=== PATIENT | male | born 1980 | race Caucasian/White ===

== ENCOUNTER 2016-12-31 20:30 | Emergency (ER) | payer OTHER ==
[2016-12-31 20:35] VITALS: BP 157/97
[2016-12-31 21:15] LABS: CHLORIDE,CL 106 mmol/L (101-111); SODIUM,NA 141 mmol/L (135-145)
--- NOTE | 2016-12-31 21:17 | EDM.PDOC ---
ED HPI GENERAL MEDICAL PROBLEM - General Chief Complaint: Cardiovascular Problem Stated Complaint: KAZ ARMENDARIZ, [id number] Time Seen by Provider: 12/31/16 21:00 Source of Information: Reports: Patient History Limitations: Reports: No Limitations - History of Present Illness INITIAL COMMENTS - FREE TEXT/NARRATIVE: 36 yo M with PMH of Paroxysmal A-fib (recently diagnosed about 1 year ago) is here for evaluation of his A-fib. He reports when he gets into A-fib intermittently, he spontaneously converts into sinus rhythm over 7-14 hours without intervention. But, he has required admission and cardizem in the past for his rate control. Today, patient reports he started to feel his heart was racing starting around 1 pm this afternoon; he has been monitoring his pulse and BP since then (pulse has been 70-115 bpm, SBP has been 130s-150s). Since heart racing/palpitations, he has also been feeling fatigued. He reports having a recent anxiety/panic attack in [place]. He reports his recent lab work in clinic in [place] last week was unremarkable. He denies chest pain, SOB, acute cough, LE edema, recent illness. He feels well overall but is here at the request of his since he has remained in A-fib for about 7-8 hrs now. 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 He reports having a follow up with Cardiology next week. He has never had to get cardioverted for his A-fib. He reports compliance with his medications, including metoprolol and high dose aspirin. He took his metoprolol around 9:30 am today. Onset: Today Onset Date: 12/31/16 - Related Data Allergies Allergy/AdvReac Type Severity Reaction Status Date / Time No Known Allergies Allergy Verified 12/31/16 20:39 Home Meds: Home Meds Aspirin 325 mg PO WITHBREAKFAST #30 tablet 02/07/16 [Rx] Metoprolol Succinate [Toprol XL 50mg] 50 mg PO DAILY 04/20/16 [History] LORazepam [LORazepam] 0.5 mg PO QPM PRN 12/31/16 [History] Venlafaxine HCl [Venlafaxine ER] 37.5 mg PO DAILY 12/31/16 [History] Past Medical History HEENT History: Reports: Impaired Vision Cardiovascular History: Reports: Afib Respiratory History: Reports: None Gastrointestinal History: Reports: None Genitourinary History: Reports: None Musculoskeletal History: Reports: None Neurological History: Reports: None Psychiatric History: Reports: Anxiety Endocrine/Metabolic History: Reports: None Hematologic History: Reports: None Immunologic History: Reports: None Oncologic (Cancer) History: Reports: None Dermatologic History: Reports: None - Infectious Disease History Infectious Disease History: Reports: C-Difficile - Past Surgical History Neurological Surgical History: Reports: Laminectomy Musculoskeletal Surgical History: Reports: Other (See Below) Other Musculoskeletal Surgeries/Procedures:: back surgery Social & Family History - Family History Cardiac: Reports: High Cholesterol Musculoskeletal: Reports: None Neurological: Reports: None Psychiatric: Reports: None - Tobacco Use Smoking Status *Q: Former Smoker Years of Tobacco use: 10 Packs/Tins Daily: 0.2 Used Tobacco, but Quit: Yes Month Tobacco Last Used: 2016 Second Hand Smoke Exposure: No - Caffeine Use Caffeine Use: Reports: Soda - Recreational Drug Use Recreational Drug Use: No - Living Situation & Occupation Living situation: Reports: with Family ED ROS GENERAL - Review of Systems Review Of Systems: See Below Constitutional: Reports: Fatigue HEENT: Reports: No Symptoms Respiratory: Reports: No Symptoms Cardiovascular: Reports: Palpitations Endocrine: Reports: No Symptoms GI/Abdominal: Reports: No Symptoms : Reports: No Symptoms Musculoskeletal: Reports: No Symptoms Skin: Reports: No Symptoms Neurological: Reports: No Symptoms Psychiatric: Reports: Anxiety ED EXAM, GENERAL - Physical Exam Exam: See Below Exam Limited By: No Limitations General Appearance: Alert, No Apparent Distress, Anxious Ears: Hearing Grossly Normal Neck: Supple Respiratory/Chest: No Respiratory Distress, Lungs Clear, Normal Breath Sounds, No Accessory Muscle Use Cardiovascular: Normal Peripheral Pulses, No Edema, No Murmur, Tachycardia, Irregularly Irregular GI/Abdominal: Soft, Non-Tender, No Distention Extremities: Normal Inspection, Non-Tender, No Pedal Edema Neurological: Alert, Oriented, Normal Cognition Psychiatric: Anxious Skin Exam: Warm, Dry, Intact EKG INTERPRETATION Rhythm: A-Fib (HR 124. No acute ST or T wave changes.) Course - Vital Signs Last Recorded V/S: Last Vital Signs Temp 97.6 F 12/31/16 20:33 Pulse 73 12/31/16 20:33 Resp 18 12/31/16 20:33 BP 157/97 H 12/31/16 20:33 Pulse Ox 99 12/31/16 20:33 - Orders/Labs/Meds Orders: Active Orders 24 hr Category Date Time Status EKG Documentation Completion [RC] URGENT Care 12/31/16 20:46 Active Labs: Laboratory Tests 12/31/16 12/31/16 12/31/16 Range/Units 20:50 20:50 20:50 WBC 9.1 (5.0-10.0) 10^3/uL RBC 5.43 (4.6-6.2) 10^6/uL Hgb 16.3 (14.0-18.0) g/dL Hct 47.2 (40.0-54.0) % MCV 86.9 (80-100) fL MCH 30.0 (27.0-34.0) pg MCHC 34.5 (33.0-35.0) g/dL Plt Count 202 (150-450) 10^3/uL Neut % (Auto) 59.2 (42.2-75.2) % Lymph % (Auto) 28.4 (20.5-50.1) % [place] % (Auto) 10.4 H (2-8) % Eos % (Auto) 1.7 (1.0-3.0) % Baso % (Auto) 0.3 (0.0-1.0) % Sodium 141 (135-145) mmol/L Potassium 3.7 (3.6-5.0) mmol/L Chloride 106 (101-111) mmol/L Carbon Dioxide 23.0 (21.0-31.0) mmol/L Anion Gap 15.7 BUN 15 (7-18) mg/dL Creatinine 1.1 (0.6-1.3) mg/dL Est Cr Clr Drug Dosing 108.98 mL/min Estimated GFR (MDRD) > 60 BUN/Creatinine Ratio 13.63 Glucose 111 H (74-105) mg/dL Calcium 9.2 (8.4-10.2) mg/dl Total Bilirubin 1.9 H (0.2-1.0) mg/dL AST 26 (10-42) IU/L ALT 18 (10-60) IU/L Alkaline Phosphatase 45 (42-121) IU/L Troponin I < 0.02 (0.00-0.02) ng/ml Total Protein 7.4 (6.7-8.2) g/dl Albumin 4.5 (3.2-5.5) g/dl Globulin 2.9 Albumin/Globulin Ratio 1.55 TSH, Ultra Sensitive 0.53 (0.35-7.0) uIu/mL Meds: Medications Discontinued Medications Generic Name Dose Route Start Last Admin Trade Name Freq PRN Reason Stop Dose Admin Diltiazem HCl 20 mg 12/31/16 21:57 12/31/16 22:10 Diltiazem IVPUSH 12/31/16 21:58 20 mg ONETIME ONE Administration - Re-Assessments/Exams Free Text/Narrative Re-Assessment/Exam: 12/31/16 23:37 Labs, imaging, and EKG were discussed again with the patient. Based on the work- up so far, there do not appear to be acute pathology (such as heart attack, pneumonia, thyroid disease, anemia) that would require intervention. He feels fine after receiving the dose of Cardizem. He is given the option to get hospitalized since his A-fib is continuing but his HR is better controlled (80s- 90s) after Cardizem. He would prefer to go home and follow up with Cardiology at his upcoming visit next week on . Departure - Departure Time of Disposition: 23:35 Disposition: Home, Self-Care 01 Condition: Fair Clinical Impression: Atrial fibrillation with RVR Instructions: Atrial Fibrillation, [id number] Forms: ED Department Discharge Additional Instructions: Continue home medications. Follow up with Cardiology at your upcoming visit next week. Follow up with primary care provider as needed. Return to the ER if symptoms return.
[2016-12-31] MEDS ORDERED: Diltiazem 25 MG/5 ML SDV IVPUSH ONE (21:57)
--- NOTE | 2017-01-04 13:29 | EKG ---
12/31/2016 - ANGIE LEONE - A 12-lead EKG shows atrial fibrillation with rapid ventricular response. Heart rate of 124. No significant ST elevation or ST depression noted on this 12-lead EKG. Nonspecific ST-T wave changes noted on lead V2 and V3. [facility] /[id number]
== END 2016-12-31 23:49 | disposition home or self-care (01) ==
LOC: DL.ED 20:30
DX: I48.91 Unspecified atrial fibrillation (principal); H54.7 Unspecified visual loss; F41.9 Anxiety disorder, unspecified; Z87.891 Personal history of nicotine dependence
CPT/HCPCS: 36415; 71010; 80053; 84443; 84484; 85025; 93005; 96374; 99284; J3490

== ENCOUNTER 2017-01-01 01:48 | Observation (INO) | payer OTHER ==
[2017-01-01 02:26] LABS: CHLORIDE,CL 105 mmol/L (101-111); SODIUM,NA 140 mmol/L (135-145)
--- NOTE | 2017-01-01 02:39 | EDM.PDOC ---
ED HPI GENERAL MEDICAL PROBLEM - General Chief Complaint: Cardiovascular Problem Stated Complaint: AFIB, CANT GET A DEEP BREATH Time Seen by Provider: 01/01/17 02:20 Source of Information: Reports: Patient - History of Present Illness INITIAL COMMENTS - FREE TEXT/NARRATIVE: 36 yo M with PMHx of PAF presents back to the ER within about 2 hours of discharge last night (12-31-16). He was resting at home and took aspirin 325 mg dose at home after discharge. He states he is having palpitations again but is also feeling more anxious. He now reports having 2/10 chest pain that started about 20 minutes ago; he was not having chest pain couple of hours ago. Chest pain is "burning" in the middle of the chest; it is non-radiating; no alleviating or aggravating factors. Denies strenuous activities at home after discharge. He denies shortness of breath to me but to the nurse he had reported "not being able to take a deep breath" about 20 minutes ago. He reports he has been told that he has acid reflux in the past but he does not take any medications for this issue. Treatments [employer]: Reports: Aspirin Mid-Sternal Chest Pain Score (Numeric/FACES): 2 - Related Data Allergies Allergy/AdvReac Type Severity Reaction Status Date / Time No Known Allergies Allergy Verified 01/01/17 01:56 Home Meds: Home Meds Aspirin 325 mg PO WITHBREAKFAST #30 tablet 02/07/16 [Rx] Metoprolol Succinate [Toprol XL 50mg] 50 mg PO DAILY 04/20/16 [History] LORazepam [LORazepam] 0.5 mg PO QPM PRN 12/31/16 [History] Venlafaxine HCl [Venlafaxine ER] 37.5 mg PO DAILY 12/31/16 [History] Past Medical History HEENT History: Reports: Impaired Vision Cardiovascular History: Reports: Afib Respiratory History: Reports: None Gastrointestinal History: Reports: None Genitourinary History: Reports: None Musculoskeletal History: Reports: None Neurological History: Reports: None Psychiatric History: Reports: Anxiety Endocrine/Metabolic History: Reports: None Hematologic History: Reports: None Immunologic History: Reports: None Oncologic (Cancer) History: Reports: None Dermatologic History: Reports: None - Infectious Disease History Infectious Disease History: Reports: C-Difficile - Past Surgical History Neurological Surgical History: Reports: Laminectomy Musculoskeletal Surgical History: Reports: Other (See Below) Other Musculoskeletal Surgeries/Procedures:: back surgery Social & Family History - Family History Cardiac: Reports: High Cholesterol Musculoskeletal: Reports: None Neurological: Reports: None Psychiatric: Reports: None - Tobacco Use Smoking Status *Q: Former Smoker Years of Tobacco use: 10 Packs/Tins Daily: 0.2 Used Tobacco, but Quit: Yes Month Tobacco Last Used: may 2016 Second Hand Smoke Exposure: No - Caffeine Use Caffeine Use: Reports: Soda - Recreational Drug Use Recreational Drug Use: No - Living Situation & Occupation Living situation: Reports: with Family ED ROS GENERAL - Review of Systems Review Of Systems: See Below Constitutional: Reports: Fatigue HEENT: Reports: No Symptoms Respiratory: Reports: Shortness of Breath Cardiovascular: Reports: Chest Pain Endocrine: Reports: No Symptoms GI/Abdominal: Reports: No Symptoms : Reports: No Symptoms Musculoskeletal: Reports: No Symptoms Skin: Reports: No Symptoms Neurological: Reports: No Symptoms Psychiatric: Reports: Anxiety Hematologic/Lymphatic: Reports: No Symptoms ED EXAM, GENERAL - Physical Exam Exam: See Below Exam Limited By: No Limitations General Appearance: Alert, No Apparent Distress, Anxious Respiratory/Chest: No Respiratory Distress, Lungs Clear, Normal Breath Sounds, No Accessory Muscle Use Cardiovascular: No Edema, No Murmur, Tachycardia, Irregularly Irregular GI/Abdominal: Soft, Non-Tender, No Organomegaly, No Distention Extremities: Normal Inspection, Normal Range of Motion, Non-Tender, No Pedal Edema Neurological: Alert, Oriented, Normal Cognition Psychiatric: Anxious Skin Exam: Warm, Dry, Intact EKG INTERPRETATION EKG Date: 01/01/17 Time: 01:50 Rhythm: A-Fib Rate (Beats/Min): 112 Course - Vital Signs Last Recorded V/S: Last Vital Signs Temp 97.2 F 01/01/17 01:51 Pulse 119 H 01/01/17 01:51 Resp 20 01/01/17 01:51 BP 157/98 H 01/01/17 01:51 Pulse Ox 97 01/01/17 01:51 - Orders/Labs/Meds Orders: Active Orders 24 hr Category Date Time Status EKG Documentation Completion [RC] URGENT Care 01/01/17 01:52 Active Diltiazem [Cardizem] 100 mg Med 01/01/17 03:30 Active Sodium Chloride 0.9% [Normal Saline] 100 ml IV TITRATE Medication Orders Diltiazem HCl 100 mg/ Sodium (Chloride) 100 mls @ 5 mls/hr IV TITRATE LOUANN; 5 MG /HR PRN Reason: Protocol Labs: Laboratory Tests 01/01/17 01/01/17 01/01/17 Range/Units 02:00 02:00 02:00 WBC 12.1 H (5.0-10.0) 10^3/uL RBC 5.66 (4.6-6.2) 10^6/uL Hgb 16.9 (14.0-18.0) g/dL Hct 48.8 (40.0-54.0) % MCV 86.2 (80-100) fL MCH 29.9 (27.0-34.0) pg MCHC 34.6 (33.0-35.0) g/dL Plt Count 238 (150-450) 10^3/uL Neut % (Auto) 67.8 (42.2-75.2) % Lymph % (Auto) 22.2 (20.5-50.1) % [place] % (Auto) 9.1 H (2-8) % Eos % (Auto) 0.7 L (1.0-3.0) % Baso % (Auto) 0.2 (0.0-1.0) % D-Dimer, Quantitative < 100 (0-400) ng/mL Sodium 140 (135-145) mmol/L Potassium 3.6 (3.6-5.0) mmol/L Chloride 105 (101-111) mmol/L Carbon Dioxide 24.0 (21.0-31.0) mmol/L Anion Gap 14.6 BUN 14 (7-18) mg/dL Creatinine 1.0 (0.6-1.3) mg/dL Est Cr Clr Drug Dosing TNP Estimated GFR (MDRD) > 60 BUN/Creatinine Ratio 14.00 Glucose 136 H (74-105) mg/dL Calcium 9.4 (8.4-10.2) mg/dl Total Bilirubin 1.8 H (0.2-1.0) mg/dL AST 27 (10-42) IU/L ALT 20 (10-60) IU/L Alkaline Phosphatase 46 (42-121) IU/L Troponin I < 0.02 (0.00-0.02) ng/ml Total Protein 7.6 (6.7-8.2) g/dl Albumin 4.5 (3.2-5.5) g/dl Globulin 3.1 Albumin/Globulin Ratio 1.45 Meds: Medications Generic Name Dose Route Start Last Admin Trade Name Freq PRN Reason Stop Dose Admin Diltiazem HCl 100 mg/ Sodium 100 mls @ 5 mls/hr 01/01/17 03:30 Chloride IV TITRATE LOUANN Protocol 5 MG/HR - Re-Assessments/Exams Free Text/Narrative Re-Assessment/Exam: 01/01/17 03:21 Patient updated about labs, current work up. Case discussed with Dr. Calero and he has graciously accepted to take the patient onto his service for further care. Departure - Departure Time of Disposition: 03:22 Disposition: Admitted As Inpatient 67 Condition: Fair Clinical Impression: Atrial fibrillation with RVR Care Plan Goals: Admit to inpatient service.
[2017-01-01] MEDS ORDERED: Diltiazem 100 MG in Sodium Chloride 0.9% 100 ML IV SCH (03:30)
[2017-01-01] MEDS ORDERED: Zolpidem 5 MG Tab PO PRN (04:34)
[2017-01-01] MEDS ORDERED: LORazepam 0.5 MG Tab PO PRN (04:38)
--- NOTE | 2017-01-01 05:23 | HP ---
CHIEF COMPLAINT: Palpitations. HISTORY OF PRESENTING ILLNESS: Mr. Rose Velasco is a 36-year-old male with medical history significant for hypertension, hyperlipidemia, paroxysmal atrial fibrillation, on metoprolol, presented to the ER with complaints of palpitations. While in the emergency room, the patient did receive IV Cardizem after which his rate was controlled, but later on, his rate started creeping up to 100 to one teens range. The patient was then started on IV Cardizem drip and then got admitted to the hospital. At this time, the patient says that the palpitations started yesterday afternoon around 2:00 p.m. while he was at his work and had continuous feeling of palpitations and then started having to have some burning sensation in the upper chest which made him come to the ER. He denies any ongoing chest pains at this time. Denies any shortness of breath at this time. No complaints of fevers or chills in the last few days. No complaints of nausea, vomiting, or diarrhea in the last few days. No complaints of abdominal pain. No complaints of cough with sputum in the last few days. The patient claims that he is in a lot of stress for the last 8 days where his boss at the workplace had a severe stroke and from cerebrovascular accident, and his recently got diagnosed with coronary artery disease requiring bypass surgery, so it has been a lot of stress and he attributes stress to this episode. The patient denied any history of chest pains on exertion. No history of dyspnea on exertion. No history of orthopnea or paroxysmal nocturnal dyspnea. The patient denied any history of hematemesis, hematochezia, or melenic stools. Normal bowel and bladder habits otherwise. REVIEW OF SYSTEMS: A complete review of system including skin, ear, nose, and throat, cardiovascular system, respiratory system, gastrointestinal system, genitourinary system, hematology, oncology, allergy, immunology, constitutional were all evaluated and were negative except for the above-said notes. PAST MEDICAL HISTORY: Significant for paroxysmal atrial fibrillation, hypertension, hyperlipidemia, gastroesophageal reflux disease, sinusitis, conjunctivitis. PAST SURGICAL HISTORY: Significant for wisdom teeth extraction, vasectomy, and recent back surgery. FAMILY HISTORY: Significant for heart disease in his father and high cholesterol in his mother. SOCIAL HISTORY: The patient had history of smoking tobacco in the past but quit smoking for the last 6 months. History of occasional alcohol intake. ALLERGIES: No known drug allergies. HOME MEDICATIONS: 1. Omeprazole 20 mg daily. 2. Lorazepam 0.5 mg as needed. 3. Aspirin 325 mg daily. 4. Venlafaxine 37.5 mg daily. 5. Metoprolol XL 50 mg daily. PHYSICAL EXAMINATION: Vital Signs: Temperature of 98.3, pulse ranging between 85 to 100, respiratory rate of 20, blood pressure of 159/84. General Appearance: The patient is well oriented to time, place, and person. Follows commands spontaneously. Cardiovascular: S1, S2 heard with normal intensity. No gallops. Respiratory: Clear to auscultation bilaterally. No wheeze. No crepitations. Abdomen: Soft. Bowel sounds positive. Nontender. No rigidity. Extremities: No edema in bilateral lower extremities. Neurology: No gross focal neurological deficits. LABS: WBC 12.1, hemoglobin 16.9 hematocrit 48.8, platelet count 238. D-dimer less than 100. Sodium 140, potassium 3.6, chloride 100, bicarb 24, BUN 14, creatinine 1, glucose 136. AST 27, ALT 20, troponin less than 0.02. ASSESSMENT: 1. Paroxysmal atrial fibrillation with rapid ventricular response. 2. Hypertension. 3. Hyperlipidemia. PLAN: 1. Atrial fibrillation with rapid ventricular response. The patient is admitted to the hospital, but after getting admitted to the hospital, his heart rate was controlled and his Cardizem drip is on hold, so we will switch him to observation status. We will closely follow the patient. Continue the Toprol-XL. His AFib with RVR is mainly stemming from his stress. The patient has not slept in the last few days which could potentially lead to this stress-induced atrial fibrillation. We will have him on Ambien at this time to help him sleep better. We will closely monitor in the telemetry unit. 2. Hypertension, seems to be elevated at times. He is currently on Toprol-XL. One might consider increasing the dose to 75 mg daily to better control the heart rate and also the blood pressure. 3. DVT prophylaxis. We will have him on Lovenox for DVT prophylaxis. 4. Code status. The patient wants to be full code. 5. Discussed with Chas Reyna regarding the plan of care from the ER. Reviewed the labs and medications. Reviewed the old charts. [facility] /[id number]
[2017-01-01] MEDS ORDERED: Omeprazole 20 MG Cap.CR PO SCH (06:00)
[2017-01-01] MEDS ORDERED: Aspirin 325 MG Tab PO SCH (08:00)
[2017-01-01] MEDS ORDERED: Metoprolol Succinate 50 MG Tab.ER PO SCH (09:00)
[2017-01-01] MEDS ORDERED: Venlafaxine 37.5 MG Cap.ER PO SCH (09:00)
[2017-01-01] MEDS ORDERED: Enoxaparin 40 MG/0.4 ML Syringe SUBCUT SCH (09:00)
[2017-01-01 10:28] VITALS: BP 122/79
--- NOTE | 2017-01-01 17:11 | DISCH ---
ADMITTING DIAGNOSIS: Atrial fibrillation with rapid ventricular response. DISCHARGE DIAGNOSIS: Atrial fibrillation with rapid ventricular response, resolved. At the time of discharge, back to normal sinus rhythm. HISTORY OF PRESENTING ILLNESS: Mr. Rose Velasco is a 36-year-old male with medical history significant for hypertension, hyperlipidemia, paroxysmal atrial fibrillation, on metoprolol, presented to the ER with complaints of palpitations and was also noted to be in atrial fibrillation with rapid ventricular response. The patient required IV Cardizem bolus, and then IV Cardizem drip, requiring admission to the hospital, but soon after admission, patient's heart rate was much controlled, so we were able to discontinue the Cardizem drip. Overnight he remained in atrial fibrillation, but at the time of discharge, he switched back to normal sinus rhythm. He usually takes Toprol-XL 50 mg once a day. The patient was explained about possible increase in the dose to 75 mg once a day if he continues to have palpitation. The patient has an upcoming appointment with his Cardiology in next 5 days, so the patient is encouraged to keep that appointment. His serial cardiac enzymes remained negative. The 12-lead EKG looked benign. He was worked up by Cardiology in the past for similar paroxysmal atrial fibrillation. He is being discharged home in stable condition. He is advised to follow with Cardiology Clinic as scheduled and primary care physician as scheduled. DISCHARGE MEDICATIONS: Include: 1. Aspirin 325 mg daily. 2. Lorazepam 0.5 mg every evening as needed for anxiety. 3. Toprol-XL 50 mg daily. 4. Omeprazole 20 mg at breakfast. 5. Venlafaxine 37.5 mg daily. PHYSICAL EXAMINATION: On the day of discharge: Vital Signs: Temperature of 98.5, pulse of 75, blood pressure 122/79, respiratory rate of 18, saturating at 98% on room air. General Appearance: The patient is well oriented to time, place, and person. Follows commands spontaneously. Cardiovascular System: S1, S2 heard with normal intensity. No gallops. Respiratory: Clear to auscultation bilaterally. No wheeze. No crepitations. Abdomen: Soft. Bowel sounds positive. Nontender. No rigidity. Extremities: No edema in bilateral lower extremities. Neurology: No gross focal neurological deficit. CONDITION ON ADMISSION: Poor. CONDITION ON DISCHARGE: Stable. ACTIVITY: As tolerated. FOLLOWUP: Followup with Cardiology Clinic in next 5 days. Followup with primary care physician as scheduled. [facility] /[id number]
--- NOTE | 2017-01-04 13:23 | EKG ---
01/01/2017 - ANGIE LEONE - A 12-lead EKG shows atrial fibrillation with rapid ventricular response with heart rate of 112. No significant ST elevation or ST depression noted on this 12-lead EKG. Nonspecific ST-T wave changes noted on lead V2, V3. [facility] /[id number]
== END 2017-01-01 15:30 | disposition home or self-care (01) ==
LOC: DL.ED 01:48 → INTOOBSV 03:33 → UNDOADMOB 03:33 → DL.MS 03:33
PROVIDERS: ADMIT Internal Medicine; ATTEND Internal Medicine
DX: I48.0 Paroxysmal atrial fibrillation (principal); I10 Essential (primary) hypertension; E78.5 Hyperlipidemia, unspecified; K21.9 Gastro-esophageal reflux disease without esophagitis; Z87.891 Personal history of nicotine dependence; Z82.49 Family history of ischemic heart disease and other diseases of the circulatory system; Z79.82 Long term (current) use of aspirin; Z79.899 Other long term (current) drug therapy; Z98.52 Vasectomy status; Z98.890 Other specified postprocedural states
CPT/HCPCS: 36415; 80053; 83735; 84100; 84484; 85025; 85379; 93005; 99285; A9270; J3490; J7050; 96365; G0378

== ENCOUNTER 2017-02-04 06:31 | Day surgery (SDC) | payer OTHER ==
[2017-02-04] MEDS ORDERED: Midazolam 1 MG/ML 2 ML SDV IV ONE ×3 (06:32→07:38)
[2017-02-04] MEDS ORDERED: fentaNYL 100 MCG/2 ML SDV IV ONE ×3 (06:32→07:37)
[2017-02-04] MEDS ORDERED: Midazolam 1 MG/ML 2 ML SDV ONE (06:35)
[2017-02-04] MEDS ORDERED: fentaNYL 100 MCG/2 ML SDV ONE (06:36)
[2017-02-04] MEDS ORDERED: Dextrose 5%-0.45% NaCl 1,000 ML IV SCH ×2 (07:15→17:15)
[2017-02-04] MEDS ORDERED: Sodium Chloride 0.9% 10 ML Syringe FLUSH PRN ×2 (07:16→17:12)
--- NOTE | 2017-02-04 10:33 | OR ---
DATE: 02/04/2017 PROCEDURES: Esophagogastroduodenoscopy, narrow-band imaging, and multiple pinch biopsies. INSTRUMENT USED: GIF-H180 Olympus video panendoscope. PREMEDICATIONS: No oral topical anesthesia used. Fentanyl 100 mcg intravenous, Versed 2 mg intravenous. The procedure was done under pulse oximetry, BP recording, and quality assurance monitor. INDICATION: The patient with persistent chest pain as well as heartburn and regurgitation, unexplained, and not responsive to medical measures, on high-dose PPI. DESCRIPTION OF PROCEDURE: Esophagogastroduodenoscopy is performed for detection of any active erosive lesions, Méndez esophagus, and/or malignancy also under consideration. H. pylori status to be determined, endoscopic hemostasis therapy if needed. The scope was passed with ease. Adequate visualization of the esophagus was made from proximal to distal areas. No upper esophageal lesions identified. No distal esophageal stricture. No uphill or downhill esophageal varices. No Corazon-Alva tear. No evidence of erosive esophagitis by Melcroft criteria. No esophageal polyp or tumor mass identified. Z-line was seen at around 40 cm distal to the oral verge, configuration consistent with grade 1 by Zapp classification. Long intrarenal furrows were noted as well as some ringed configuration of the esophagus. NBI views were taken. Photographs were obtained. Four-quadrant biopsies were taken from the distal and proximal esophagus and sent for any histopathologic evidence of esophageal eosinophilia. No proximal gastric varices noted. Gastric fundus examination by retroflexion showed no polypoid lesions. No gastric ulcer, malignant mass, or vascular ectasia identified. Multiple pinch biopsies were taken from the gastric antrum and proximal body and sent for PyloriTek test for H. pylori and histopathology. Duodenal bulb showed no ulcer. Visualized second part of duodenum was unremarkable. Photographs were taken of the duodenal bulb, gastric antrum, fundus, and distal esophagus. IMPRESSION: Suspected eosinophilic esophagitis. The patient tolerated the procedure well. [facility] /[id number]
[2017-02-04 10:53] VITALS: BP 136/90
== END 2017-02-04 09:56 | disposition home or self-care (01) ==
LOC: DL.ENDO 06:31
PROVIDERS: ATTEND Internal Medicine Gastroenterology
DX: K20.0 Eosinophilic esophagitis (principal); K31.89 Other diseases of stomach and duodenum; E66.09 Other obesity due to excess calories; F41.1 Generalized anxiety disorder; E78.5 Hyperlipidemia, unspecified; I48.0 Paroxysmal atrial fibrillation; Z79.82 Long term (current) use of aspirin; Z98.52 Vasectomy status; Z98.890 Other specified postprocedural states; Z98.818 Other dental procedure status
CPT/HCPCS: 43239; 87077; J2250; J3010; J7042

== ENCOUNTER 2017-04-20 06:58 | Day surgery (SDC) | payer OTHER ==
[~2017-04-20 06:58] MED LIST: Dextrose 5%-0.45% NaCl 1,000 ML IV SCH; Midazolam 1 MG/ML 2 ML SDV ONE; Sodium Chloride 0.9% 10 ML Syringe FLUSH PRN; fentaNYL 100 MCG/2 ML SDV ONE
[2017-04-20] MEDS ORDERED: fentaNYL 100 MCG/2 ML SDV IV ONE ×3 (06:59→07:52)
[2017-04-20] MEDS ORDERED: Midazolam 1 MG/ML 2 ML SDV IV ONE ×3 (06:59→07:53)
[2017-04-20 10:18] VITALS: BP 132/83
--- NOTE | 2017-04-20 11:49 | OR ---
DATE: 04/20/2017 PROCEDURE: Esophagogastroduodenoscopy and multiple pinch biopsies. INSTRUMENT USED: GIF-H180 Olympus video panendoscope. PREMEDICATIONS: No oral topical anesthesia used. Fentanyl 100 mcg intravenous, Versed 2 mg intravenous. The procedure was done under pulse oximetry, BP recording, and cardiac rn. INDICATION: The patient with known esophageal eosinophilia treated with high- dose PPI for 2 months. Followup esophagogastroduodenoscopy is performed for detection of any active erosive lesions, biopsies to be obtained for any persistent esophageal eosinophilia, eosinophilic esophagitis under consideration, endoscopic hemostasis therapy if needed. The scope was passed with ease. Adequate visualization of the esophagus was made from proximal to distal areas. No upper esophageal lesions identified. No distal esophageal stricture. No uphill or downhill esophageal varices. No Corazon-Alva tear. No evidence of erosive esophagitis by [place] criteria. No esophageal polyp or tumor mass identified. Macroscopic features noted consistent with eosinophilic esophagitis. No proximal gastric varices noted. Gastric fundus examination by retroflexion showed no polypoid lesions. No gastric ulcer, malignant mass, or vascular ectasia identified. Duodenal bulb showed no ulcer. Visualized second part of the duodenum was unremarkable. Four quadrant biopsies were taken from the distal and proximal esophagus and sent for any histopathologic evidence of esophageal eosinophilia. No bleeding was noted from any of the visualized areas at the completion of examination. Photographs were taken of the esophagus. IMPRESSION: Esophageal eosinophilia. The patient tolerated the procedure well. [facility] /[id number]
== END 2017-04-20 10:04 | disposition home or self-care (01) ==
LOC: DL.ENDO 06:58
PROVIDERS: ATTEND Internal Medicine Gastroenterology
DX: K20.0 Eosinophilic esophagitis (principal); K21.9 Gastro-esophageal reflux disease without esophagitis; E66.9 Obesity, unspecified
CPT/HCPCS: 43239; J2250; J3010; J7042

== ENCOUNTER 2017-04-27 19:22 | Emergency (ER) | payer OTHER ==
[2017-04-27 20:21] LABS: CHLORIDE,CL 103 mmol/L (101-111); SODIUM,NA 139 mmol/L (135-145)
--- NOTE | 2017-04-27 20:44 | EDM.PDOC ---
ED HPI GENERAL MEDICAL PROBLEM - General Chief Complaint: Chest Pain Stated Complaint: CHEST PRESSURE,SHOULDER/NECK PAINS, [id number] Time Seen by Provider: 04/27/17 20:30 Source of Information: Reports: Patient History Limitations: Reports: No Limitations - History of Present Illness INITIAL COMMENTS - FREE TEXT/NARRATIVE: This 37 yo male patient reported to the ED due to a 5 day history of increased chest discomfort. The patient reports he started to notice his pain on Tuesday. Since that time, the patient has noticed some pain between his shoulders (posterior). The patient reports increased stress at work. The patient reports that he is supposed to be taking Fleconide, but has not taken it due to side effects. The patient reports he attempted to contact his electrocardiologist, but has not heard back. Onset: Gradual Duration: Day(s):, Constant, Getting Worse Location: Reports: Chest Quality: Reports: Dull Severity: Moderate Improves with: Reports: None Worsens with: Reports: None Associated Symptoms: Reports: Chest Pain - Related Data Allergies Allergy/AdvReac Type Severity Reaction Status Date / Time No Known Allergies Allergy Verified 04/20/17 07:15 Home Meds: Home Meds Aspirin 325 mg PO WITHBREAKFAST #30 tablet 02/07/16 [Rx] Metoprolol Succinate [Toprol XL 50mg] 50 mg PO DAILY 04/20/16 [History] Venlafaxine HCl [Venlafaxine ER] 37.5 mg PO DAILY 12/31/16 [History] Hydrocodone/Acetaminophen [Hydrocodon-Acetaminophn 10-325] 1 tab PO Q6H PRN 04/10 [History] Melatonin/Pyridoxine HCl (B6) [Melatonin 3 mg Tablet] 1 tab PO BEDTIME 02/03/17 [History] Naproxen Sodium 1 - 2 tab PO BID PRN 02/03/17 [History] Esomeprazole [NexIUM] 1 cap PO BID 04/19/17 [History] Flecainide Acetate 1.5 tab PO BID 04/19/17 [History] Multivitamins/Minerals [Vitamins and Minerals] 1 tab PO DAILY 04/19/17 [History] Past Medical History HEENT History: Reports: Impaired Vision, Sinusitis Cardiovascular History: Reports: Afib, High Cholesterol, Hypertension Respiratory History: Reports: None Gastrointestinal History: Reports: GERD, Other (See Below) Other Gastrointestinal History: EOSINOPHILIC ESOPHAGITIS Genitourinary History: Reports: None Musculoskeletal History: Reports: Other (See Below) Other Musculoskeletal History: LUMBAR HERNIATED DISC Neurological History: Reports: None Psychiatric History: Endocrine/Metabolic History: Reports: Obesity/BMI 30+ Hematologic History: Reports: None Immunologic History: Reports: None Oncologic (Cancer) History: Reports: None Dermatologic History: Reports: None - Infectious Disease History Infectious Disease History: Reports: Chicken Pox - Past Surgical History Head Surgeries/Procedures: Reports: None Cardiovascular Surgical History: Reports: None GI Surgical History: Reports: EGD Male Surgical History: Reports: Vasectomy Endocrine Surgical History: Reports: None Neurological Surgical History: Reports: None, Laminectomy Musculoskeletal Surgical History: Reports: Other (See Below) Other Musculoskeletal Surgeries/Procedures:: back surgery JAN 2016 Oncologic Surgical History: Reports: None Dermatological Surgical History: Reports: None Social & Family History - Family History Cardiac: Reports: High Cholesterol Musculoskeletal: Reports: None Neurological: Reports: None Psychiatric: Reports: None - Tobacco Use Smoking Status *Q: Former Smoker Years of Tobacco use: 10 Packs/Tins Daily: 0.2 Used Tobacco, but Quit: Yes Month Tobacco Last Used: may 2016 Second Hand Smoke Exposure: No - Caffeine Use Caffeine Use: Reports: Soda Other Caffeine Use: 'MINIMAL' - Alcohol Use Number of Drinks Per Day: 0 - Recreational Drug Use Recreational Drug Use: No Drug Use in Last 12 Months: No - Living Situation & Occupation Living situation: Reports: with Family ED ROS GENERAL - Review of Systems Review Of Systems: ROS reveals no pertinent complaints other than HPI. ED EXAM, GENERAL - Physical Exam Exam: See Below Exam Limited By: No Limitations General Appearance: Alert, WD/WN, Mild Distress Eye Exam: Bilateral Eye: EOMI, Normal Inspection, PERRL Ears: Normal External Exam, Normal Canal, Hearing Grossly Normal, Normal TMs Nose: Normal Inspection, Normal Mucosa, No Blood Throat/Mouth: Normal Inspection, Normal Lips, Normal Teeth, Normal Gums, Normal Oropharynx, Normal Voice, No Airway Compromise Head: Atraumatic, Normocephalic Neck: Normal Inspection, Supple, Non-Tender, Full Range of Motion Respiratory/Chest: No Respiratory Distress, Lungs Clear, Normal Breath Sounds, No Accessory Muscle Use, Chest Non-Tender Cardiovascular: Normal Peripheral Pulses, Regular Rate, Rhythm, No Edema, No Gallop, No JVD, No Murmur, No Rub GI/Abdominal: Normal Bowel Sounds, Soft, Non-Tender, No Organomegaly, No Distention, No Abnormal Bruit, No Mass (Male) Exam: Deferred Rectal (Males) Exam: Deferred Back Exam: Normal Inspection, Full Range of Motion, NT Extremities: Normal Inspection, Normal Range of Motion, Non-Tender, Normal Capillary Refill, No Pedal Edema Neurological: Alert, Oriented, CN II-XII Intact, Normal Cognition, Normal Gait, Normal Reflexes, No Motor/Sensory Deficits Psychiatric: Normal Affect, Normal Mood Skin Exam: Warm, Dry, Intact, Normal Color, No Rash Lymphatic: No Adenopathy Course - Orders/Labs/Meds Orders: Active Orders 24 hr Category Date Time Status EKG Documentation Completion [RC] URGENT Care 04/27/17 19:30 Active Labs: Laboratory Tests 04/27/17 04/27/17 Range/Units 19:44 19:44 WBC 8.0 (5.0-10.0) 10^3/uL RBC 5.23 (4.6-6.2) 10^6/uL Hgb 15.8 (14.0-18.0) g/dL Hct 45.6 (40.0-54.0) % MCV 87.2 (80-100) fL MCH 30.2 (27.0-34.0) pg MCHC 34.6 (33.0-35.0) g/dL Plt Count 229 (150-450) 10^3/uL Neut % (Auto) 57.9 (42.2-75.2) % Lymph % (Auto) 29.0 (20.5-50.1) % [place] % (Auto) 10.7 H (2-8) % Eos % (Auto) 2.0 (1.0-3.0) % Baso % (Auto) 0.4 (0.0-1.0) % Sodium 139 (135-145) mmol/L Potassium 4.0 (3.6-5.0) mmol/L Chloride 103 (101-111) mmol/L Carbon Dioxide 29.0 (21.0-31.0) mmol/L Anion Gap 11.0 BUN 16 (7-18) mg/dL Creatinine 1.0 (0.6-1.3) mg/dL Est Cr Clr Drug Dosing TNP Estimated GFR (MDRD) > 60 BUN/Creatinine Ratio 16.00 Glucose 105 (74-105) mg/dL Calcium 9.2 (8.4-10.2) mg/dl Total Bilirubin 2.0 H (0.2-1.0) mg/dL AST 42 (10-42) IU/L ALT 53 (10-60) IU/L Alkaline Phosphatase 44 (42-121) IU/L Troponin I < 0.02 (0.00-0.02) ng/ml Total Protein 7.5 (6.7-8.2) g/dl Albumin 4.3 (3.2-5.5) g/dl Globulin 3.2 Albumin/Globulin Ratio 1.34 Departure - Departure Time of Disposition: 08:42 Disposition: Home, Self-Care 01 Condition: Good Clinical Impression: Non-cardiac chest pain Instructions: Nonspecific Chest Pain, [id number] Forms: ED Department Discharge Care Plan Goals: The patient was advised of the examination, lab, EKG and x-ray results during the visit. The patient was encouraged to continue with his current medications as prescribed. The patient should continue to monitor his symptoms. If the patient has any additional symptoms or concerns, the patient should follow-up with his primary care facility or return to the emergency department. - My Orders Last 24 Hours: My Active Orders 04/27/17 19:30 EKG Documentation Completion [RC] URGENT - Assessment/Plan Last 24 Hours: My Active Orders 04/27/17 19:30 EKG Documentation Completion [RC] URGENT
[2017-04-27 20:58] VITALS: BP 146/91
--- NOTE | 2017-05-02 14:50 | EKG ---
04/27/2017 - ANGIE LEONE - FINDINGS: This 12-lead EKG shows a normal sinus rhythm with a ventricular rate of 71. Normal axis and intervals. No acute ST-T wave changes. [facility] /[id number]
== END 2017-04-27 20:52 | disposition home or self-care (01) ==
LOC: DL.ED 19:22
DX: R07.89 Other chest pain (principal); I10 Essential (primary) hypertension; E78.00 Pure hypercholesterolemia, unspecified; I48.91 Unspecified atrial fibrillation; Z79.82 Long term (current) use of aspirin; Z87.891 Personal history of nicotine dependence; Z79.899 Other long term (current) drug therapy
CPT/HCPCS: 36415; 71045; 80053; 84484; 85025; 93005; 99285

== ENCOUNTER 2017-07-01 00:57 | Emergency (ER) | payer OTHER ==
[2017-07-01 01:08] VITALS: BP 152/94
--- NOTE | 2017-07-01 01:38 | EDM.PDOC ---
ED HPI GENERAL MEDICAL PROBLEM - General Chief Complaint: Chest Pain Stated Complaint: CHEST PAIN, L ARM TINGLING [id number] Time Seen by Provider: 07/01/17 01:15 Source of Information: Reports: Patient, RN, RN Notes Reviewed History Limitations: Reports: No Limitations - History of Present Illness INITIAL COMMENTS - FREE TEXT/NARRATIVE: Pt presents to the ER with c/o pain and tingling to the left arm. He states the arm pain began around 8-9pm tonight. He states he was also awoken in bed tonight with a feeling of being punched in the chest. He points to the left clavicle area and states the pain lasted for about 30 seconds and has since resolved. He states last week he had a 18-20 hour episode of atrial fibrillation. He states he is scheduled to have ablation done, and was started on Coumadin. He states his first dose of the Coumadin was on am (06-30-17 ). He states this cough be anxiety but he is unsure. Onset: Today, Sudden Location: Reports: Chest, Upper Extremity, Left Quality: Reports: Ache, Other (tingling) Severity: Moderate Improves with: Reports: None Worsens with: Reports: None Context: Reports: Other (worse with rest, better when up moving around) Associated Symptoms: Reports: Chest Pain Chest Pain Score (Numeric/FACES): 4 - Related Data Allergies Allergy/AdvReac Type Severity Reaction Status Date / Time No Known Allergies Allergy Verified 07/01/17 01:05 Home Meds: Home Meds Metoprolol Succinate [Toprol XL 50mg] 100 mg PO DAILY 04/20/16 [History] Melatonin/Pyridoxine HCl (B6) [Melatonin 3 mg Tablet] 1 tab PO BEDTIME 02/03/17 [History] Naproxen Sodium 1 - 2 tab PO BID PRN 02/03/17 [History] Multivitamins/Minerals [Vitamins and Minerals] 1 tab PO DAILY 04/19/17 [History] Aspirin [Halfprin] 81 mg PO DAILY 07/01/17 [History] Omeprazole [Omeprazole] 20 mg PO BID 07/01/17 [History] Warfarin Sodium [Warfarin Sodium] 5 mg PO DAILY 07/01/17 [History] Past Medical History HEENT History: Reports: Impaired Vision, Sinusitis Cardiovascular History: Reports: Afib, High Cholesterol, Hypertension Respiratory History: Reports: None Gastrointestinal History: Reports: GERD, Other (See Below) Other Gastrointestinal History: EOSINOPHILIC ESOPHAGITIS Genitourinary History: Reports: None Musculoskeletal History: Reports: Other (See Below) Other Musculoskeletal History: LUMBAR HERNIATED DISC Neurological History: Reports: None Psychiatric History: Endocrine/Metabolic History: Reports: Obesity/BMI 30+ Hematologic History: Reports: None Immunologic History: Reports: None Oncologic (Cancer) History: Reports: None Dermatologic History: Reports: None - Infectious Disease History Infectious Disease History: Reports: Chicken Pox - Past Surgical History Head Surgeries/Procedures: Reports: None Cardiovascular Surgical History: Reports: None GI Surgical History: Reports: EGD Male Surgical History: Reports: Vasectomy Endocrine Surgical History: Reports: None Neurological Surgical History: Reports: None, Laminectomy Musculoskeletal Surgical History: Reports: Other (See Below) Other Musculoskeletal Surgeries/Procedures:: back surgery JAN 2016 Oncologic Surgical History: Reports: None Dermatological Surgical History: Reports: None Social & Family History - Family History Cardiac: Reports: High Cholesterol Musculoskeletal: Reports: None Neurological: Reports: None Psychiatric: Reports: None - Tobacco Use Smoking Status *Q: Never Smoker Years of Tobacco use: 10 Packs/Tins Daily: 0.2 Used Tobacco, but Quit: Yes Month Tobacco Last Used: may 2016 Second Hand Smoke Exposure: No - Caffeine Use Caffeine Use: Reports: Soda Other Caffeine Use: 'MINIMAL' - Alcohol Use Number of Drinks Per Day: 0 - Recreational Drug Use Recreational Drug Use: No Drug Use in Last 12 Months: No - Living Situation & Occupation Living situation: Reports: with Family ED ROS GENERAL - Review of Systems Review Of Systems: ROS reveals no pertinent complaints other than HPI. ED EXAM, GENERAL - Physical Exam Exam: See Below Exam Limited By: No Limitations General Appearance: Alert, WD/WN, No Apparent Distress Eye Exam: Bilateral Eye: EOMI, Normal Inspection, PERRL Ears: Normal External Exam, Hearing Grossly Normal Nose: Normal Inspection Throat/Mouth: Normal Inspection, Normal Voice, No Airway Compromise Head: Atraumatic, Normocephalic Neck: Normal Inspection, Supple, Non-Tender, Full Range of Motion Respiratory/Chest: No Respiratory Distress, Lungs Clear, Normal Breath Sounds, No Accessory Muscle Use, Chest Non-Tender Cardiovascular: Normal Peripheral Pulses, Regular Rate, Rhythm, No Edema, No Gallop, No JVD, No Murmur, No Rub Peripheral Pulses: 2+: Radial (L), Radial (R), Dorsalis Pedis (L), Dorsalis Pedis (R) GI/Abdominal: Normal Bowel Sounds, Soft, Non-Tender, No Organomegaly, No Distention, No Abnormal Bruit, No Mass (Male) Exam: Deferred Rectal (Males) Exam: Deferred Back Exam: Normal Inspection, Full Range of Motion, NT Extremities: Normal Inspection, Normal Range of Motion, Non-Tender, Normal Capillary Refill, No Pedal Edema Neurological: Alert, Oriented, CN II-XII Intact, Normal Cognition, Normal Gait, Normal Reflexes, No Motor/Sensory Deficits Psychiatric: Normal Affect, Normal Mood Skin Exam: Warm, Dry, Intact, Normal Color, No Rash Lymphatic: No Adenopathy EKG INTERPRETATION EKG Date: 07/01/17 Time: 01:05 Rhythm: NSR Rate (Beats/Min): 73 [place]: Normal P-Wave: Present QRS: Normal ST-T: Normal QT: Normal Comparison: No Change Course - Vital Signs Last Recorded V/S: Last Vital Signs Temp 98.4 F 07/01/17 01:05 Pulse 74 07/01/17 01:05 Resp 18 07/01/17 01:05 BP 152/94 H 07/01/17 01:05 Pulse Ox 99 07/01/17 01:05 - Orders/Labs/Meds Orders: Active Orders 24 hr Category Date Time Status EKG Documentation Completion [RC] STAT Care 07/01/17 01:19 Active Chest 1V Frontal [CR] Stat Exams 07/01/17 01:19 Taken Labs: Laboratory Tests 07/01/17 07/01/17 07/01/17 Range/Units 01:35 01:35 01:35 WBC 9.3 (5.0-10.0) 10^3/uL RBC 5.27 (4.6-6.2) 10^6/uL Hgb 15.7 (14.0-18.0) g/dL Hct 45.1 (40.0-54.0) % MCV 85.6 (80-100) fL MCH 29.8 (27.0-34.0) pg MCHC 34.8 (33.0-35.0) g/dL Plt Count 203 (150-450) 10^3/uL Neut % (Auto) 54.1 (42.2-75.2) % Lymph % (Auto) 33.4 (20.5-50.1) % [place] % (Auto) 8.9 H (2-8) % Eos % (Auto) 3.3 H (1.0-3.0) % Baso % (Auto) 0.3 (0.0-1.0) % PT 9.9 (9.0-12.0) SEC INR 1.0 (0.9-1.2) Sodium 137 (135-145) mmol/L Potassium 3.8 (3.6-5.0) mmol/L Chloride 105 (101-111) mmol/L Carbon Dioxide 23.0 (21.0-31.0) mmol/L Anion Gap 12.8 BUN 18 (7-18) mg/dL Creatinine 1.0 (0.6-1.3) mg/dL Est Cr Clr Drug Dosing 118.73 mL/min Estimated GFR (MDRD) > 60 BUN/Creatinine Ratio 18.00 Glucose 108 H (74-105) mg/dL Calcium 8.8 (8.4-10.2) mg/dl Total Bilirubin 1.6 H (0.2-1.0) mg/dL AST 31 (10-42) IU/L ALT 28 (10-60) IU/L Alkaline Phosphatase 43 (42-121) IU/L Troponin I < 0.02 (0.00-0.02) ng/ml Total Protein 7.5 (6.7-8.2) g/dl Albumin 4.2 (3.2-5.5) g/dl Globulin 3.3 Albumin/Globulin Ratio 1.27 - Radiology Interpretation Free Text/Narrative:: Chest xray: IMPRESSION: Normal chest x-ray. Thank you for allowing us to participate in the care of your patient. Dictated and Authenticated by: Bhavesh Tony MD 07/01/2017 1:50 AM Central Time ([place] & [place]) See rad report Departure - Departure Time of Disposition: 02:18 Disposition: Home, Self-Care 01 Condition: Fair Clinical Impression: Non-cardiac chest pain, Anxiety Instructions: Nonspecific Chest Pain, Generalized Anxiety Disorder, Adult, Panic Attacks, [id number] Forms: ED Department Discharge Additional Instructions: Return to the ER with any further problems Follow up with your primary care facility next week - My Orders Last 24 Hours: My Active Orders 07/01/17 01:19 EKG Documentation Completion [RC] STAT Chest 1V Frontal [CR] Stat - Assessment/Plan Last 24 Hours: My Active Orders 07/01/17 01:19 EKG Documentation Completion [RC] STAT Chest 1V Frontal [CR] Stat
[2017-07-01 02:02] LABS: CHLORIDE,CL 105 mmol/L (101-111); SODIUM,NA 137 mmol/L (135-145)
[2017-07-01] MEDS ORDERED: LORazepam 0.5 MG Tab PO ONE (02:19)
--- NOTE | 2017-07-04 14:36 | EKG ---
07/01/2017- ANGIE LEONE - FINDINGS: EKG, per my reading, shows sinus rhythm at the rate of 73. [facility] /[id number]
== END 2017-07-01 02:35 | disposition home or self-care (01) ==
LOC: DL.ED 00:57
DX: R07.89 Other chest pain (principal); F41.9 Anxiety disorder, unspecified; E78.00 Pure hypercholesterolemia, unspecified; I10 Essential (primary) hypertension; Z79.899 Other long term (current) drug therapy; Z79.82 Long term (current) use of aspirin; Z79.01 Long term (current) use of anticoagulants; Z87.891 Personal history of nicotine dependence
CPT/HCPCS: 36415; 71045; 80053; 84484; 85025; 85610; 93005; 99285; A9270

== ENCOUNTER 2017-07-19 15:30 | Emergency (ER) | payer OTHER ==
[2017-07-19 16:07] VITALS: BP 170/89
--- NOTE | 2017-07-19 16:09 | EDM.PDOC ---
ED HPI GENERAL MEDICAL PROBLEM - General Chief Complaint: Neck Problem Stated Complaint: [id number] AFIB STIFF NECK, NAUSEOUS Time Seen by Provider: 07/19/17 16:00 Source of Information: Reports: Patient, RN, RN Notes Reviewed History Limitations: Reports: No Limitations - History of Present Illness INITIAL COMMENTS - FREE TEXT/NARRATIVE: Rod is a 37 yo male who presents to the ED due to an exacerbation of atrial fibrillation. He reports that he noticed the palpitations started around 8 am today while he was working at his desk. He reports that he noticed that his heart rate got up to 180s. Reports mild pressure to his chest, stating " this is the normal pressure I get when I have these episodes" Mild shortness of breath. Slight dizziness. Denies recent illness. He does have an appointment later this week with cardiology due to his frequent atrial fibrillation episodes. Onset: Today Onset Date: 07/19/17 Onset Time: 08:00 Location: Reports: Chest Quality: Reports: Ache Severity: Mild Improves with: Reports: Rest Worsens with: Reports: Movement Associated Symptoms: Reports: Chest Pain, Nausea/Vomiting - Related Data Allergies Allergy/AdvReac Type Severity Reaction Status Date / Time No Known Allergies Allergy Verified 07/19/17 15:56 Home Meds: Home Meds Metoprolol Succinate [Toprol XL 50mg] 100 mg PO DAILY 04/20/16 [History] Melatonin/Pyridoxine HCl (B6) [Melatonin 3 mg Tablet] 1 tab PO BEDTIME 02/03/17 [History] Naproxen Sodium 1 - 2 tab PO BID PRN 02/03/17 [History] Multivitamins/Minerals [Vitamins and Minerals] 1 tab PO DAILY 04/19/17 [History] Aspirin [Halfprin] 81 mg PO DAILY 07/01/17 [History] Omeprazole 20 mg PO BID 07/01/17 [History] Warfarin Sodium 5 mg PO DAILY 07/01/17 [History] Past Medical History HEENT History: Reports: Impaired Vision, Sinusitis Cardiovascular History: Reports: Afib, High Cholesterol, Hypertension Respiratory History: Reports: None Gastrointestinal History: Reports: GERD, Other (See Below) Other Gastrointestinal History: EOSINOPHILIC ESOPHAGITIS Genitourinary History: Reports: None Musculoskeletal History: Reports: Other (See Below) Other Musculoskeletal History: LUMBAR HERNIATED DISC Neurological History: Reports: None Psychiatric History: Endocrine/Metabolic History: Reports: Obesity/BMI 30+ Hematologic History: Reports: None Immunologic History: Reports: None Oncologic (Cancer) History: Reports: None Dermatologic History: Reports: None - Infectious Disease History Infectious Disease History: Reports: Chicken Pox - Past Surgical History Head Surgeries/Procedures: Reports: None Cardiovascular Surgical History: Reports: None GI Surgical History: Reports: EGD Male Surgical History: Reports: Vasectomy Endocrine Surgical History: Reports: None Neurological Surgical History: Reports: None, Laminectomy Musculoskeletal Surgical History: Reports: Other (See Below) Other Musculoskeletal Surgeries/Procedures:: back surgery JAN 2016 Oncologic Surgical History: Reports: None Dermatological Surgical History: Reports: None Social & Family History - Family History Cardiac: Reports: High Cholesterol Musculoskeletal: Reports: None Neurological: Reports: None Psychiatric: Reports: None - Tobacco Use Smoking Status *Q: Never Smoker Years of Tobacco use: 10 Packs/Tins Daily: 0.2 Used Tobacco, but Quit: Yes Month/Year Tobacco Last Used: may 2016 Second Hand Smoke Exposure: No - Caffeine Use Caffeine Use: Reports: Soda Other Caffeine Use: 'MINIMAL' - Alcohol Use Number of Drinks Per Day: 0 - Recreational Drug Use Recreational Drug Use: No Drug Use in Last 12 Months: No - Living Situation & Occupation Living situation: Reports: with Family ED ROS GENERAL - Review of Systems Review Of Systems: ROS reveals no pertinent complaints other than HPI. ED EXAM, GENERAL - Physical Exam Exam: See Below Exam Limited By: No Limitations General Appearance: Alert, WD/WN, No Apparent Distress Ears: Normal External Exam, Normal Canal, Hearing Grossly Normal, Normal TMs Ear Exam: Bilateral Ear: Auricle Normal, Canal Normal, TM normal Nose: Normal Inspection, Normal Mucosa, No Blood Throat/Mouth: Normal Inspection, Normal Lips, Normal Teeth, Normal Gums, Normal Oropharynx, Normal Voice, No Airway Compromise Head: Atraumatic, Normocephalic Neck: Normal Inspection, Supple, Non-Tender, Full Range of Motion Respiratory/Chest: No Respiratory Distress, Lungs Clear, Normal Breath Sounds, No Accessory Muscle Use, Chest Non-Tender Cardiovascular: Normal Peripheral Pulses, No Edema, No Gallop, No JVD, No Murmur , No Rub, Irregularly Irregular GI/Abdominal: Normal Bowel Sounds, Soft, Non-Tender, No Organomegaly, No Distention, No Abnormal Bruit, No Mass (Male) Exam: Deferred Rectal (Males) Exam: Deferred Back Exam: Normal Inspection, Full Range of Motion, NT Extremities: Normal Inspection, Normal Range of Motion, Non-Tender, Normal Capillary Refill, No Pedal Edema Neurological: Alert, Oriented, CN II-XII Intact, Normal Cognition, Normal Gait, Normal Reflexes, No Motor/Sensory Deficits Psychiatric: Normal Affect, Normal Mood Skin Exam: Warm, Dry, Intact, Normal Color, No Rash Lymphatic: No Adenopathy Course - Vital Signs Last Recorded V/S: Last Vital Signs Temp 99.2 F 07/19/17 15:58 Pulse 119 H 07/19/17 15:58 Resp 16 07/19/17 15:58 BP 170/89 H 07/19/17 15:58 Pulse Ox 98 07/19/17 15:58 - Orders/Labs/Meds Orders: Active Orders 24 hr Category Date Time Status EKG Documentation Completion [RC] URGENT Care 07/19/17 16:14 Active CULTURE STREP A CONFIRMATION [] Stat Lab 07/19/17 16:16 Results STREP SCRN A RAPID W CULT CONF [] Stat Lab 07/19/17 16:16 Ordered Labs: Laboratory Tests 07/19/17 07/19/17 07/19/17 Range/Units 16:33 16:33 16:33 WBC 8.3 (5.0-10.0) 10^3/uL RBC 5.12 (4.6-6.2) 10^6/uL Hgb 15.5 (14.0-18.0) g/dL Hct 44.0 (40.0-54.0) % MCV 85.9 (80-100) fL MCH 30.3 (27.0-34.0) pg MCHC 35.2 H (33.0-35.0) g/dL Plt Count 223 (150-450) 10^3/uL Neut % (Auto) 60.1 (42.2-75.2) % Lymph % (Auto) 26.4 (20.5-50.1) % [place] % (Auto) 9.4 H (2-8) % Eos % (Auto) 3.7 H (1.0-3.0) % Baso % (Auto) 0.4 (0.0-1.0) % PT 17.7 H D (9.0-12.0) SEC INR 1.8 H (0.9-1.2) Sodium 140 (135-145) mmol/L Potassium 3.8 (3.6-5.0) mmol/L Chloride 105 (101-111) mmol/L Carbon Dioxide 26.0 (21.0-31.0) mmol/L Anion Gap 12.8 BUN 13 (7-18) mg/dL Creatinine 1.0 (0.6-1.3) mg/dL Est Cr Clr Drug Dosing 118.73 mL/min Estimated GFR (MDRD) > 60 BUN/Creatinine Ratio 13.00 Glucose 107 H (74-105) mg/dL Calcium 9.1 (8.4-10.2) mg/dl Total Bilirubin 1.6 H (0.2-1.0) mg/dL AST 31 (10-42) IU/L ALT 27 (10-60) IU/L Alkaline Phosphatase 45 (42-121) IU/L Troponin I < 0.02 (0.00-0.02) ng/ml Total Protein 7.3 (6.7-8.2) g/dl Albumin 4.1 (3.2-5.5) g/dl Globulin 3.2 Albumin/Globulin Ratio 1.28 Departure - Departure Time of Disposition: 17:18 Disposition: Home, Self-Care 01 Condition: Fair Clinical Impression: Afib Qualifiers: Atrial fibrillation type: paroxysmal Qualified Code(s): I48.0 - Paroxysmal atrial fibrillation Forms: ED Department Discharge Care Plan Goals: Continue your regular medications. Follow-up with cardiology as already scheduled Return to the ER if increased chest pain, shortness of breath, or other concerns.
[2017-07-19 17:01] LABS: CHLORIDE,CL 105 mmol/L (101-111); SODIUM,NA 140 mmol/L (135-145)
--- NOTE | 2017-07-20 15:39 | EKG ---
07/19/2017 - ANGIE LEONE - TIME: 1621 hours. EKG shows atrial fibrillation with rapid ventricular response. [facility] /[id number]
== END 2017-07-19 17:33 | disposition home or self-care (01) ==
LOC: DL.ED 15:30
DX: I48.0 Paroxysmal atrial fibrillation (principal); I10 Essential (primary) hypertension; E66.9 Obesity, unspecified; Z79.01 Long term (current) use of anticoagulants; Z79.899 Other long term (current) drug therapy; Z79.82 Long term (current) use of aspirin; Z87.891 Personal history of nicotine dependence
CPT/HCPCS: 36415; 80053; 84484; 85025; 85610; 87081; 87430; 93005; 99283

== ENCOUNTER 2017-09-21 03:23 | Emergency (ER) | payer OTHER ==
--- NOTE | 2017-09-21 03:50 | EDM.PDOC ---
ED HPI GENERAL MEDICAL PROBLEM - General Chief Complaint: Abdominal Pain Stated Complaint: REALLY BAD ABD PAIN [id number] Time Seen by Provider: 09/21/17 03:46 Source of Information: Reports: Patient History Limitations: Reports: No Limitations - History of Present Illness INITIAL COMMENTS - FREE TEXT/NARRATIVE: states onset epiG pain @ 2am last ate was soup for dinner ~ 6-7pm. sleeps on 2 pillows. had EGD from Dr Vazquez and being Tx with omepraz. works in [employer] without added stress. Right Upper Abdomen Pain Score (Numeric/FACES): 6 - Related Data Allergies Allergy/AdvReac Type Severity Reaction Status Date / Time No Known Allergies Allergy Verified 09/21/17 03:30 Home Meds: Home Meds Metoprolol Succinate [Toprol XL 50mg] 100 mg PO DAILY 04/20/16 [History] Melatonin/Pyridoxine HCl (B6) [Melatonin 3 mg Tablet] 1 tab PO BEDTIME 02/03/17 [History] Naproxen Sodium 1 - 2 tab PO BID PRN 02/03/17 [History] Multivitamins/Minerals [Vitamins and Minerals] 1 tab PO DAILY 04/19/17 [History] Aspirin [Halfprin] 81 mg PO DAILY 07/01/17 [History] Omeprazole 20 mg PO BID 07/01/17 [History] Warfarin Sodium 5 mg PO DAILY 07/01/17 [History] Past Medical History HEENT History: Reports: Impaired Vision, Sinusitis Cardiovascular History: Reports: Afib, High Cholesterol, Hypertension Respiratory History: Reports: None Gastrointestinal History: Reports: GERD, Other (See Below) Other Gastrointestinal History: EOSINOPHILIC ESOPHAGITIS Genitourinary History: Reports: None Musculoskeletal History: Reports: Other (See Below) Other Musculoskeletal History: LUMBAR HERNIATED DISC Neurological History: Reports: None Psychiatric History: Endocrine/Metabolic History: Reports: Obesity/BMI 30+ Hematologic History: Reports: None Immunologic History: Reports: None Oncologic (Cancer) History: Reports: None Dermatologic History: Reports: None - Infectious Disease History Infectious Disease History: Reports: Chicken Pox - Past Surgical History Head Surgeries/Procedures: Reports: None Cardiovascular Surgical History: Reports: Cardiac Ablation GI Surgical History: Reports: EGD Male Surgical History: Reports: Vasectomy Endocrine Surgical History: Reports: None Neurological Surgical History: Reports: None, Laminectomy Musculoskeletal Surgical History: Reports: Other (See Below) Other Musculoskeletal Surgeries/Procedures:: back surgery JAN 2016 Oncologic Surgical History: Reports: None Dermatological Surgical History: Reports: None Social & Family History - Family History Cardiac: Reports: High Cholesterol Musculoskeletal: Reports: None Neurological: Reports: None Psychiatric: Reports: None - Tobacco Use Smoking Status *Q: Never Smoker Second Hand Smoke Exposure: No - Caffeine Use Caffeine Use: Reports: Soda Other Caffeine Use: 'MINIMAL' - Recreational Drug Use Recreational Drug Use: No - Living Situation & Occupation Living situation: Reports: with Family ED ROS GENERAL - Review of Systems Review Of Systems: ROS reveals no pertinent complaints other than HPI. ED EXAM, GI/ABD - Physical Exam Exam: See Below Exam Limited By: No Limitations General Appearance: Alert, WD/WN, Mild Distress, Other (discomfort) Ears: Hearing Grossly Normal Throat/Mouth: Normal Voice, No Airway Compromise Head: Atraumatic Neck: Non-Tender, Full Range of Motion Respiratory/Chest: No Respiratory Distress Cardiovascular: Regular Rate, Rhythm GI/Abdominal Exam: Tender, Other (minor epig discomfort). No: Distended, Guarding, Rigid, Rebound Neurological: Alert, Oriented, Normal Cognition, Normal Gait, No Motor/Sensory Deficits Psychiatric: Normal Affect, Normal Mood Skin Exam: Warm, Dry, Normal Color Lymphatic: No Adenopathy Course - Vital Signs Last Recorded V/S: Last Vital Signs Temp 36.1 C 09/21/17 03:26 Pulse 85 09/21/17 04:29 Resp 18 09/21/17 04:29 BP 123/76 09/21/17 04:29 Pulse Ox 96 09/21/17 04:29 - Orders/Labs/Meds Orders: Active Orders 24 hr Category Date Time Status Sodium Chloride 0.9% [Normal Saline] 1,000 ml Med 09/21/17 04:37 Ordered IV .BOLUS Medication Orders Sodium Chloride (Normal Saline) 1,000 mls @ 999 mls/hr IV .BOLUS ONE Stop: 09/21/17 05:37 Last Admin: 09/21/17 04:41 Dose: 999 mls/hr Labs: Laboratory Tests 09/21/17 09/21/17 09/21/17 Range/Units 03:33 03:33 03:33 WBC 9.2 (5.0-10.0) 10^3/uL RBC 4.90 (4.6-6.2) 10^6/uL Hgb 15.0 (14.0-18.0) g/dL Hct 43.5 (40.0-54.0) % MCV 88.8 (80-100) fL MCH 30.6 (27.0-34.0) pg MCHC 34.5 (33.0-35.0) g/dL Plt Count 251 (150-450) 10^3/uL Neut % (Auto) 50.9 (42.2-75.2) % Lymph % (Auto) 35.8 (20.5-50.1) % [place] % (Auto) 9.7 H (2-8) % Eos % (Auto) 3.1 H (1.0-3.0) % Baso % (Auto) 0.5 (0.0-1.0) % Sodium 139 (135-145) mmol/L Potassium 3.7 (3.6-5.0) mmol/L Chloride 105 (101-111) mmol/L Carbon Dioxide 28.0 (21.0-31.0) mmol/L Anion Gap 9.7 BUN 14 (7-18) mg/dL Creatinine 1.0 (0.6-1.3) mg/dL Est Cr Clr Drug Dosing 118.73 mL/min Estimated GFR (MDRD) > 60 BUN/Creatinine Ratio 14.00 Glucose 113 H (74-105) mg/dL Calcium 9.0 (8.4-10.2) mg/dl Total Bilirubin 1.2 H (0.2-1.0) mg/dL AST 30 (10-42) IU/L ALT 28 (10-60) IU/L Alkaline Phosphatase 53 (42-121) IU/L Troponin I < 0.02 (0.00-0.02) ng/ml Total Protein 7.3 (6.7-8.2) g/dl Albumin 4.0 (3.2-5.5) g/dl Globulin 3.3 Albumin/Globulin Ratio 1.21 Amylase 34 (28-100) U/L Lipase 25 (22-51) U/L Meds: Medications Generic Name Dose Route Start Last Admin Trade Name Freq PRN Reason Stop Dose Admin Sodium Chloride 1,000 mls @ 999 mls/hr 09/21/17 04:37 09/21/17 04:41 Normal Saline IV 09/21/17 05:37 999 mls/hr .BOLUS ONE Administration Discontinued Medications Generic Name Dose Route Start Last Admin Trade Name Cedrick PRN Reason Stop Dose Admin Al Hydroxide/Mg Hydroxide 30 ml 09/21/17 03:55 09/21/17 04:02 Gi Cocktail PO 09/21/17 03:56 30 ml ONETIME ONE Administration Ketorolac Tromethamine 30 mg 09/21/17 04:36 09/21/17 04:41 Toradol IVPUSH 09/21/17 04:37 30 mg ONETIME ONE Administration Morphine Sulfate 4 mg 09/21/17 04:14 09/21/17 04:23 Morphine IVPUSH 09/21/17 04:15 4 mg ONETIME ONE Administration - Re-Assessments/Exams Free Text/Narrative Re-Assessment/Exam: 09/21/17 04:14 re-exam; s/p GI cocktail = '0' . results discussed with pt. 09/21/17 04:58 re-exam; states pain returning. s/p IV morph = minimal. s/p IV toradol = better now. Departure - Departure Time of Disposition: 04:15 Disposition: Home, Self-Care 01 Condition: Fair Clinical Impression: Abdominal pain Qualifiers: Abdominal location: epigastric Qualified Code(s): R10.13 - Epigastric pain - Discharge Information Instructions: Abdominal Pain, Adult, [id number] Forms: ED Department Discharge Additional Instructions: 1) avoid solid foods until see clinic for GALL BLADDER ULTRASOUND THIS MORNING - My Orders Last 24 Hours: My Active Orders 09/21/17 04:37 Sodium Chloride 0.9% [Normal Saline] 1,000 ml IV .BOLUS - Assessment/Plan Last 24 Hours: My Active Orders 09/21/17 04:37 Sodium Chloride 0.9% [Normal Saline] 1,000 ml IV .BOLUS
[2017-09-21 04:00] LABS: CHLORIDE,CL 105 mmol/L (101-111); SODIUM,NA 139 mmol/L (135-145)
[2017-09-21] MEDS: GI Cocktail Oral Solution 30 ML PO ONE (04:02)
[2017-09-21] MEDS: Morphine 4 MG/ML Syringe IVPUSH ONE (04:23)
[2017-09-21 04:30] VITALS: BP 123/76
[2017-09-21] MEDS: Sodium Chloride 0.9% 1,000 ML IV ONE (04:41)
[2017-09-21] MEDS: Ketorolac 30 MG/ML SDV IVPUSH ONE (04:41)
== END 2017-09-21 05:43 | disposition home or self-care (01) ==
LOC: DL.ED 03:23
DX: R10.13 Epigastric pain (principal); R10.11 Right upper quadrant pain; I10 Essential (primary) hypertension; E78.00 Pure hypercholesterolemia, unspecified; I48.91 Unspecified atrial fibrillation; K21.9 Gastro-esophageal reflux disease without esophagitis; Z79.82 Long term (current) use of aspirin; Z79.899 Other long term (current) drug therapy; Z79.01 Long term (current) use of anticoagulants
CPT/HCPCS: 36415; 80053; 82150; 83690; 84484; 85025; 96361; 96374; 96375; 99284; A9270; J1885; J2270; J7030